=== PATIENT | female | born 1960 | race African-American/Black ===

== ENCOUNTER 2019-03-08 11:01 | Inpatient (IN) | payer OTHER ==
[2019-03-03 12:06] VITALS: BMI 35.5
[~2019-03-08 11:01] MED LIST: BUPIVACAINE HCL/PF 2.5 MG/ML - 30 ML VIAL IJ ONE
[2019-03-08] MEDS ORDERED: MIDAZOLAM HCL 2 MG/2 ML SINGLE DOSE VIAL ONE ×2 (11:29→11:58)
--- NOTE | 2019-03-08 11:54 | HP ---
Admitting History and Physical - Admission Chief Complaint: Morbid obesity History Source: Patient Limitations to Obtaining History: No Limitations - Past Medical History Cardiovascular: Yes: HTN ...: No Endocrine: Yes: Diabetes Mellitus - Past Surgical History Past Surgical History: Yes: Appendectomy, - Smoking History Smoking history: Never smoked Have you smoked in the past 12 months: No - Alcohol/Substance Use Hx Alcohol Use: No - Social History ADL: Independent Home Medications - Allergies Allergies/Adverse Reactions: Allergies Allergy/AdvReac Type Severity Reaction Status Date / Time No Known Allergies Allergy Verified 03/08/19 11:23 - Home Medications Home Medications: Ambulatory Orders Dapagliflozin Propanediol [Farxiga] 10 mg PO DAILY 05/24/15 Furosemide [Lasix -] 40 mg PO DAILY 05/24/15 Triamterene [Dyrenium -] 75 mg PO DAILY 05/24/15 Oxycodone HCl/Acetaminophen [Percocet 5/325 -] 1 tab PO Q6H #20 tablet 05/25/15 Dulaglutide [Trulicity] 1.5 mg SQ WEEKLY 03/03/19 Docusate Sodium [Colace -] 100 mg PO TID #90 capsule 03/08/19 Famotidine [Pepcid] 20 mg PO BID #60 tablet 03/08/19 Ondansetron [Zofran -] 8 mg PO TID #30 tablet 03/08/19 Oxycodone HCl/Acetaminophen [Percocet 5-325 mg Tablet] 1 - 2 tab PO Q6H #28 tab MDD 4 03/08/19 Family Medical History Family History: Unremarkable Review of Systems - Review of Systems Constitutional: denies: Chills, Fever Neck: reports: No Symptoms Cardiovascular: reports: No Symptoms Respiratory: reports: No Symptoms Gastrointestinal: reports: No Symptoms Neurological: denies: Change in LOC Pain Intensity: 0 Physical Examination Vital Signs: Vital Signs Temperature 98.5 F 03/08/19 11:25 Pulse Rate 72 03/08/19 11:25 Respiratory Rate 16 03/08/19 11:25 Blood Pressure 138/87 03/08/19 11:25 O2 Sat by Pulse Oximetry (%) 99 03/08/19 11:32 Constitutional: Yes: Calm Neck: Yes: WNL Cardiovascular: Yes: WNL Respiratory: Yes: Regular Gastrointestinal: Yes: Soft, Abdomen, Obese. No: Tenderness Neurological: Yes: Alert, Oriented Problem List - Problems (1) Hypertension Code(s): I10 - ESSENTIAL (PRIMARY) HYPERTENSION Qualifiers: Hypertension type: unspecified Qualified Code(s): I10 - Essential (primary ) hypertension (2) Diabetes mellitus type 2 in obese Code(s): E11.69 - TYPE 2 DIABETES MELLITUS WITH OTHER SPECIFIED COMPLICATION; E66.9 - OBESITY, UNSPECIFIED (3) BMI 35.0-35.9,adult Code(s): Z68.35 - BODY MASS INDEX (BMI) 35.0-35.9, ADULT (4) Morbid obesity due to excess calories Code(s): E66.01 - MORBID (SEVERE) OBESITY DUE TO EXCESS CALORIES Assessment/Plan Laparoscopic possible open vertical sleeve gastrectomy possible liver biopsy, upper endoscopy
[2019-03-08] MEDS ORDERED: HYDROmorphone HCL/PF 1 MG/ML AMP ONE (12:53)
[2019-03-08] MEDS ORDERED: LABETALOL HCL 5 MG/1 ML (100MG/20 ML VIAL) ONE (12:57)
[2019-03-08] MEDS ORDERED: BUPIVACAINE HCL 0.25% 125 MG/50 ML VIAL ONE (12:57)
[2019-03-08] MEDS ORDERED: DESFLURANE GAS 240 ML BOTTLE IH ONE (13:02)
[2019-03-08] MEDS ORDERED: NEOSTIGMINE METHYLSULFATE 0.5 MG/ML - 10 ML MDV ONE (13:12)
[2019-03-08] MEDS ORDERED: ceFAZolin SODIUM 1 GM VIAL ONE (13:12)
[2019-03-08] MEDS ORDERED: GLYCOPYRROLATE 0.2 MG/1 ML VIAL ONE (13:12)
[2019-03-08] MEDS ORDERED: BUPIVACAINE HCL/PF 2.5 MG/ML - 30 ML VIAL IJ ONE (13:54)
[2019-03-08] MEDS ORDERED: HYDROmorphone HCL CARPU-JECT 2 MG/1 ML DISP.SYRIN IVPB PRN (14:06)
--- NOTE | 2019-03-08 14:10 | OP ---
Operative Note - Note: Operative Date: 03/08/19 Pre-Operative Diagnosis: Morbid obesity. BMi 35.5. Hypertension. Diabetes mellitus type 2 Operation: Diagnositc laparoscopy. Laparoscopic vertical sleeve gastrectomy. Laparoscopic oversewing of bleeding gastric staple line Post-Operative Diagnosis: Same as Pre-op Surgeon: Valeriy Dick Social Media Marketer: Abdirizak Sanders Anesthesia: General Specimens Removed: Greater curvature of stomach Estimated Blood Loss (mls): 30 Drains & Tubes with Location: 36 fr Bougie Operative Report Dictated: Yes
[2019-03-08] MEDS ORDERED: SODIUM CHLORIDE 1,000 ML IV SCH (14:15)
[2019-03-08] MEDS ORDERED: FAMOTIDINE 20 MG PREMIXED IVPB IVPB ONE (14:16)
[2019-03-08] MEDS ORDERED: ONDANSETRON 4 MG/2 ML VIAL IVPUSH PRN (14:19)
[2019-03-08] MEDS ORDERED: oxyCODONE HCL 5 MG TABLET PO PRN ×2 (14:19)
[2019-03-08] MEDS ORDERED: PROMETHAZINE HCL 25 MG/1 ML VIAL IVPUSH PRN (14:19)
[2019-03-08] MEDS: METOCLOPRAMIDE HCL INJECTION 10 MG/2 ML VIAL IVPUSH SCH ×3 (14:28→20:09)
[2019-03-08] MEDS: ACETAMINOPHEN 1000 MG/100 ML VIAL (NON FORMULARY) IVPB SCH ×3 (14:30→20:09)
[2019-03-08] MEDS: LABETALOL HCL 5 MG/1 ML (100MG/20 ML VIAL) IVPUSH ONE ×2 (14:30→19:03)
[2019-03-08] MEDS: hydrALAZINE HCL 20 MG/ML VIAL IVPUSH ONE ×2 (14:36→19:03)
[2019-03-08 14:38] LABS: HEMATOCRIT 40.4 % (32.4-45.2); HEMOGLOBIN 13.4 GM/dl (10.7-15.3); MCH 30.7 pg (25.7-33.7); MCHC 33.1 g/dl (32.0-36.0); MEAN CELL VOLUME 92.6 fl (80-96); MEAN PLT VOLUME 8.9 fl (7.5-11.1); PLATELET COUNT 253 K/MM3 (134-434); RBC 4.36 M/mm3 (3.60-5.2); RDW 14.6 % (11.6-15.6); WHITE BLOOD COUNT 11.3 K/mm3 (4.0-10.8)
[2019-03-08 14:46] LABS: ALBUMIN 3.1 g/dl (3.4-5.0); BILIRUBIN,TOTAL 0.5 mg/dl (0.2-1); CALCIUM 8.7 mg/dl (8.5-10); CREATININE 1.1 mg/dl (0.55-1.3); POTASSIUM 3.8 mmol/L (3.5-5.1)
[2019-03-08] MEDS ORDERED: LABETALOL HCL 5 MG/1 ML (100MG/20 ML VIAL) IVPUSH PRN (15:53)
--- NOTE | 2019-03-08 16:44 | SPEC ---
DATE OF OPERATION: 03/08/2019 PLACE OF SURGERY: [address] [address] SURGEON: Carlee Dick MD SODIUM CHLORITE OPERATOR: Abdirizak Sanders MD PREOPERATIVE DIAGNOSES: 1. Morbid obesity. 2. Body mass index 35.5. 3. Hypertension. 4. Diabetes mellitus type 2. POSTOPERATIVE DIAGNOSES: 1. Morbid obesity. 2. Body mass index 35.5. 3. Hypertension. 4. Diabetes mellitus type 2. PROCEDURES: 1. Diagnostic laparoscopy. 2. Laparoscopic vertical sleeve gastrectomy. 3. Laparoscopic oversewing of gastric staple line for bleeding. SPECIMEN: Greater curvature of the stomach. ESTIMATED BLOOD LOSS: 30 mL. DRAINS: None. ANESTHESIA: GET. BOUGIE SIZE: 36-[place]ovenian. REASON FOR PROCEDURE: This is a 58-year-old female who presents for weight loss options. After describing different options, she decided to proceed with a laparoscopic, possible open, vertical sleeve gastrectomy, possible liver biopsy, upper endoscopy. The risks and benefits of the procedure were explained. These included bleeding, infection, hernia, GA, DVT, PE, injury to surrounding structures including the liver, colon, bowel, spleen, esophagus, vessel injury, nerve injury, weight regain, gastric leak, staple line leak, sleeve leak, obstruction, vitamin deficiency, hair loss, and as some of the possible complications. The patient understood and signed informed consent. DESCRIPTION OF PROCEDURE: The patient was placed supine on the operating room table. The patient underwent general endotracheal intubation. The arms were brought out at 90 degrees and secured. A foot board was placed, and the legs were secured laterally with padding. The abdomen was prepped and draped in the usual sterile fashion. A timeout was performed. An incision was made in the left upper quadrant, and a Veress needle inserted. Pneumoperitoneum was established. Subsequently, the Veress needle was removed, and a 5-mm trocar was placed under direct visualization with the laparoscope. The laparoscopic camera was inserted, and inspection of the abdominal cavity was performed. An incision was made in the supraumbilical region, and a 15-mm trocar placed under direct visualization. A 5-mm trocar was then placed in the right upper quadrant, and a 5-mm trocar placed below the left subcostal margin. A stab wound was made in the subxiphoid area, and a Olinda clamp inserted and removed to dilate the tract. A Iris liver retractor was inserted. The post was secured at the bedside by the nursing staff. The patient was placed in steep reverse Trendelenburg position. The Iris liver retractor was used to secure the liver towards the anterior abdominal wall. The pylorus was identified and 6 cm proximal to it, the lesser sac was entered using the Ligasure device. All lateral attachments to the greater curvature of the stomach including the short gastric vessels were ligated using the Ligasure device toward the gastrosplenic and gastrophrenic ligaments. Once this was done in its entirety, it was confirmed that all tubes within the nasal or oropharyngeal cavity including a temperature probe were removed by Anesthesia. The bougie was then inserted by Anesthesia. Transection of the stomach was then begun staying adjacent to the bougie but away from the angularis. Transection of the stomach was performed near the portion of the stomach where the lesser sac was entered. Two laparoscopic Endo-LISSETTE black loads were used at this location. Laparoscopic Endo-LISSETTE purple loads were then used for the remainder of the transection until the greater curvature of the stomach was fully transected. This was done staying close to the bougie. Care was taken to stay away from the angle of His cephalad. The staple line was then inspected. Hemostasis was identified. A leak test was then performed. The stomach was clamped distally to the staple line. Irrigation solution was placed in the left upper quadrant, and air insufflated by Anesthesia into the sleeve. No leaks were identified, and no obstruction was identified. This was done throughout the entirety of the staple line. The stomach was suctioned and the bougie removed fully intact under direct visualization. At this point, the irrigation solution was suctioned, and again hemostasis noted. The 15-mm supraumbilical trocar was then removed, and the specimen removed from the site using a sponge stick beavers. A Kulwant Lilia device was then used to close the fascia with a 0 Vicryl suture at this site. Again, hemostasis was noted. The Iris liver retractor was then removed under direct visualization. Pneumoperitoneum was desufflated. Hemostasis was noted at all incision sites, and Marcaine was injected at all incision sites. A 3-0 Vicryl suture was used to close the deep subcutaneous tissue at the 15-mm incision site. All incision sites were closed using 4-0 Biosyn. In addition, because of bleeding at the staple line, laparoscopic oversewing using Endo Stitch device was performed. This was done throughout the entirety of the staple line. After the staple line was sutured, hemostasis was noted. She tolerated the procedure and was transferred to recovery room in stable condition. CARLEE DICK M.D. [id number]
[2019-03-08] MEDS: ONDANSETRON 4 MG/2 ML VIAL IVPUSH SCH ×3 (19:03→22:23)
[2019-03-08] MEDS: ENOXAPARIN NA (PORCINE) 40 MG/0.4 ML DISP.SYRIN SQ SCH (22:23)
[2019-03-08] MEDS: FAMOTIDINE 20 MG/50 ML IVPB 20 MG/50 ML MG IVPB SCH (22:24)
[2019-03-09] MEDS: ONDANSETRON 4 MG/2 ML VIAL IVPUSH SCH ×3 (02:15→10:47)
[2019-03-09] MEDS: ACETAMINOPHEN 1000 MG/100 ML VIAL (NON FORMULARY) IVPB SCH ×3 (02:15→10:47)
[2019-03-09] MEDS: METOCLOPRAMIDE HCL INJECTION 10 MG/2 ML VIAL IVPUSH SCH ×2 (02:15→10:48)
--- NOTE | 2019-03-09 07:20 | DS ---
Physical Exam: SUBJECTIVE: Patient seen and examined. POD #1 s/p Laparoscopic vertical sleeve gastrectomy. Laparoscopic wedge liver biopsy. Laparoscopic oversewing of gastric staple line. Doing well. Pain adequately controlled. States she has been OOB and ambulating unassisted. Voiding spontaneously. Using her incentive spirometer as directed. Denies n/v/f/c, CP, palpitations, SOB or MCCARTHY. OBJECTIVE: Vital Signs Temperature 98.4 F 03/09/19 06:00 Pulse Rate 88 03/09/19 06:00 Respiratory Rate 03/09/19 06:00 Blood Pressure 148/76 03/09/19 06:00 O2 Sat by Pulse Oximetry (%) 94 L 03/09/19 06:53 PHYSICAL EXAM GENERAL: The patient is awake, alert, and fully oriented, in no acute distress. HEAD: Normal with no signs of trauma. EYES: PERRL, extraocular movements intact, sclera anicteric, conjunctiva clear. ENT: Ears normal, nares patent, oropharynx clear without exudates, moist mucous membranes. NECK: Trachea midline, full range of motion, supple. LUNGS: Breath sounds equal, clear to auscultation bilaterally, no wheezes, no crackles, no accessory muscle use. HEART: Regular rate and rhythm, S1, S2 without murmur, rub or gallop. ABDOMEN: All surgical ports c/d/i EXTREMITIES: 2+ pulses, warm, well-perfused, no edema. NEUROLOGICAL: Cranial nerves II through XII grossly intact. Normal speech, gait not observed. PSYCH: Normal mood, normal affect. SKIN: Warm, dry, normal turgor, no rashes or lesions noted. LABS CBC,CMP WBC 11.3 K/mm3 (4.0-10.8) H 03/08/19 14:15 RBC 4.36 M/mm3 (3.60-5.2) 03/08/19 14:15 Hgb 13.4 GM/dl (10.7-15.3) 03/08/19 14:15 Hct 40.4 % (32.4-45.2) 03/08/19 14:15 MCV 92.6 fl (80-96) 03/08/19 14:15 MCH 30.7 pg (25.7-33.7) 03/08/19 14:15 MCHC 33.1 g/dl (32.0-36.0) 03/08/19 14:15 RDW 14.6 % (11.6-15.6) 03/08/19 14:15 Plt Count 253 K/MM3 (134-434) 03/08/19 14:15 MPV 8.9 fl (7.5-11.1) 03/08/19 14:15 Sodium 138 mmol/L (136-145) 03/08/19 14:15 Potassium 3.8 mmol/L (3.5-5.1) 03/08/19 14:15 Chloride 104 mmol/L (98-107) 03/08/19 14:15 Carbon Dioxide 29 mmol/L (21-32) 03/08/19 14:15 Anion Gap 5 MMOL/L (8-16) L 03/08/19 14:15 BUN 21.0 mg/dl (7-18) H 03/08/19 14:15 Creatinine 1.1 mg/dl (0.55-1.3) 03/08/19 14:15 Est GFR (CKD-EPI)AfAm 63.64 03/08/19 14:15 Est GFR (CKD-EPI)NonAf 54.91 03/08/19 14:15 POC Glucometer 138 UNITS (80-120) 03/08/19 11:30 Random Glucose 195 mg/dl (74-106) H 03/08/19 14:15 Calcium 8.7 mg/dl (8.5-10) 03/08/19 14:15 Total Bilirubin 0.5 mg/dl (0.2-1) 03/08/19 14:15 AST 156 U/L (15-37) H 03/08/19 14:15 ALT 173 U/L (13-61) H 03/08/19 14:15 Alkaline Phosphatase 90 U/L (45-117) 03/08/19 14:15 Total Protein 7.0 g/dl (6.4-8.2) 03/08/19 14:15 Albumin 3.1 g/dl (3.4-5.0) L 03/08/19 14:15 HOSPITAL COURSE: Date of Admission:03/08/19 Date of Discharge: 03/09/19 The patient was admitted to the Med-Surg Unit after elective bariatric surgery. Now, s/p laparoscopic vertical sleeve gastrectomy. The day of surgery, the patient ambulated the hallways with assistance. The patient was monitored with remote tele/continuous pulse ox. Narcotic and non-narcotic pain management control was achieved with oral and IV pain control. Upper GI series was obtained POD #1 and no leak, extravastion or outlet obstruction. Started on a Bariatric Stage 1 diet and tolerated well. Samantha-operative IV ABX were administered in addition to GI prophylaxis. DVT prophylaxis was achieved with SCDs and early ambulation. The discharge instructions and an oral pain management plan were reviewed with the patient. All questions answered. Above plan discussed with Dr. Dick and agreed. Minutes to complete discharge: 35 Visit type - Case Type Case Type: Scheduled - New patient This patient is new to me today: Yes Date on this admission: 03/09/19
[2019-03-09 07:50] LABS: HEMATOCRIT 39.3 % (32.4-45.2); HEMOGLOBIN 12.6 GM/dl (10.7-15.3); MCH 30.2 pg (25.7-33.7); MEAN CELL VOLUME 94.3 fl (80-96); MEAN PLT VOLUME 9.2 fl (7.5-11.1); PLATELET COUNT 233 K/MM3 (134-434); RBC 4.17 M/mm3 (3.60-5.2); RDW 14.7 % (11.6-15.6); WHITE BLOOD COUNT 11.9 K/mm3 (4.0-10.8)
[2019-03-09 07:56] LABS: ALBUMIN 2.9 g/dl (3.4-5.0); BILIRUBIN,TOTAL 0.6 mg/dl (0.2-1); CALCIUM 8.3 mg/dl (8.5-10); CREATININE 1.1 mg/dl (0.55-1.3); POTASSIUM 3.8 mmol/L (3.5-5.1); TOT PROT 6.5 g/dl (6.4-8.2)
[2019-03-09] MEDS ORDERED: HYDROmorphone HCL CARPU-JECT 1 MG/1 ML DISP.SYRIN IVPB PRN (08:56)
[2019-03-09] MEDS: ENOXAPARIN NA (PORCINE) 40 MG/0.4 ML DISP.SYRIN SQ SCH (10:48)
[2019-03-09] MEDS: FAMOTIDINE 20 MG/50 ML IVPB 20 MG/50 ML MG IVPB SCH (10:48)
--- NOTE | 2019-03-09 11:29 | PN ---
Progress Note (short form) - Note Progress Note: 58F POD1 s/p lap sleeve gastrectomy under GA-ETT. Pt states that pain is well controlled and reports no anesthetic complications. AVSS. Continue current regimen.
--- NOTE | 2019-03-09 13:00 | PN ---
Progress Note (short form) - Note Progress Note: POD 1 Pain/nausea controlled Vital Signs Period Temp Pulse Resp BP Sys/Car Pulse Ox Last 24 Hr 97.8 F-99.4 F 72-92 12-19 125-185/57-99 94-99 Abd soft CBC,CMP WBC 11.9 K/mm3 (4.0-10.8) H 03/09/19 07:00 RBC 4.17 M/mm3 (3.60-5.2) 03/09/19 07:00 Hgb 12.6 GM/dl (10.7-15.3) 03/09/19 07:00 Hct 39.3 % (32.4-45.2) 03/09/19 07:00 MCV 94.3 fl (80-96) 03/09/19 07:00 MCH 30.2 pg (25.7-33.7) 03/09/19 07:00 MCHC 32.0 g/dl (32.0-36.0) 03/09/19 07:00 RDW 14.7 % (11.6-15.6) 03/09/19 07:00 Plt Count 233 K/MM3 (134-434) 03/09/19 07:00 MPV 9.2 fl (7.5-11.1) 03/09/19 07:00 Sodium 137 mmol/L (136-145) 03/09/19 07:00 Potassium 3.8 mmol/L (3.5-5.1) 03/09/19 07:00 Chloride 104 mmol/L (98-107) 03/09/19 07:00 Carbon Dioxide 27 mmol/L (21-32) 03/09/19 07:00 Anion Gap 6 MMOL/L (8-16) L 03/09/19 07:00 BUN 18.0 mg/dl (7-18) 03/09/19 07:00 Creatinine 1.1 mg/dl (0.55-1.3) 03/09/19 07:00 Est GFR (CKD-EPI)AfAm 63.64 03/09/19 07:00 Est GFR (CKD-EPI)NonAf 54.91 03/09/19 07:00 POC Glucometer 185 UNITS (80-120) 03/08/19 14:34 Random Glucose 161 mg/dl (74-106) H 03/09/19 07:00 Calcium 8.3 mg/dl (8.5-10) L 03/09/19 07:00 Total Bilirubin 0.6 mg/dl (0.2-1) 03/09/19 07:00 AST 75 U/L (15-37) H 03/09/19 07:00 ALT 112 U/L (13-61) H 03/09/19 07:00 Alkaline Phosphatase 79 U/L (45-117) D 03/09/19 07:00 Total Protein 6.5 g/dl (6.4-8.2) 03/09/19 07:00 Albumin 2.9 g/dl (3.4-5.0) L 03/09/19 07:00 UGI pending If no leak/obstruction, will start clears and discharge home Problem List - Problems (1) Hypertension Code(s): I10 - ESSENTIAL (PRIMARY) HYPERTENSION Qualifiers: Hypertension type: unspecified Qualified Code(s): I10 - Essential (primary ) hypertension (2) Diabetes mellitus type 2 in obese Code(s): E11.69 - TYPE 2 DIABETES MELLITUS WITH OTHER SPECIFIED COMPLICATION; E66.9 - OBESITY, UNSPECIFIED (3) BMI 35.0-35.9,adult Code(s): Z68.35 - BODY MASS INDEX (BMI) 35.0-35.9, ADULT (4) Morbid obesity due to excess calories Code(s): E66.01 - MORBID (SEVERE) OBESITY DUE TO EXCESS CALORIES
[2019-03-09 14:17] VITALS: BP 142/73; PULSE 78; TEMP 98.2
--- NOTE | 2019-03-11 12:28 | PATH ---
Surgical Pathology Report Patient Name: BOZENA WAGNER Med. Rec. #: [id number] /Age/Gender: 1960 (Age: 58) / F Account: [id number] Location: [facility] MED-SURG Taken: 03/08/2019 Received: 03/08/2019 Reported: 03/11/2019 Physicians: Valeriy Dick M.D. Specimen(s) Received GREATER CURVATURE STOMACH Clinical History Morbid obesity Final Diagnosis GREATER CURVATURE, STOMACH, LAPAROSCOPIC GASTRIC SLEEVE EXCISION: PORTION OF STOMACH SHOWING MODERATE CHRONIC GASTRITIS. IMMUNOSTAIN SHOWS NUMEROUS H PYLORI ORGANISMS. Electronically Signed Becky Prado M.D. Gross Description Received in formalin, labeled "greater curvature, stomach," is a 16.5 x 4.5 cm. portion of stomach with a stapled margin of resection. The serosa is garibay-rosa with minimal attached fat. The mucosa is garibay-pink with normal folds. No mucosal masses are identified. Protective Service Specialist sections are submitted in one cassette.
== END 2019-03-09 13:59 | disposition home or self-care (01) | DRG 621 ==
LOC: FM/S 11:01
PROVIDERS: ADMIT Surgery; ATTEND Surgery
PROC: 0DB64Z3 Excision of Stomach, Percutaneous Endoscopic Approach, Vertical (ICD-10-PCS; principal; 2019-03-08 12:46)
DX: E66.01 Morbid (severe) obesity due to excess calories (principal); Z68.35 Body mass index [BMI] 35.0-35.9, adult; I10 Essential (primary) hypertension; E11.9 Type 2 diabetes mellitus without complications
CPT/HCPCS: 36415; 74241-TC-FY; 80053; 82962; 85027; 88305-TC; 88342-TC; 94760; J0131; J7030

== ENCOUNTER 2019-05-23 15:50 | Emergency (ER) | payer OTHER ==
[2019-05-23 15:56] VITALS: BP 118/79; PULSE 79; TEMP 98.2; BMI 30.2
[2019-05-23] MEDS ORDERED: ACETAMINOPHEN 500 MG TABLET (FP) PO ONE (16:25)
[2019-05-23] MEDS ORDERED: ACETAMINOPHEN 500 MG TABLET (FP) ONE (16:29)
--- NOTE | 2019-05-23 17:22 | PDOC ---
History of Present Illness - General Chief Complaint: Injury Stated Complaint: FALL Time Seen by Provider: 05/23/19 16:07 History Source: Patient Exam Limitations: No Limitations - History of Present Illness Initial Comments: 05/23/19 17:22 HISTORY OF PRESENT ILLNESS: 58-year-old woman past medical history of hypertension status post recent gastric bypass surgery who presents to the emergency department for evaluation of left-sided chest pain status post trip and fall on 03/21. Patient reports she was trying to get out of a gown when her foot got caught causing her to fall forward striking her chest on the floor. Patient reports she was able to extend her left arm to provide mild protection prior to impact. Patient reports the pain got worse today after similar pain for the previous 2 days. She denies any shortness of breath, dizziness, nausea or vomiting. No recent travel or sick contacts. PAST MEDICAL HISTORY: See HPI SURGICAL HISTORY: See HPI ALLERGIES: No known drug allergies REVIEW OF SYSTEMS General/Constitutional: Denies fever or chills. Denies weakness, weight change. HEENT: Denies change in vision. Denies ear pain or discharge. Denies sore throat. Cardiovascular: Denies chest pain or shortness of breath. Respiratory: Denies cough, wheezing, or hemoptysis. Gastrointestinal: Denies nausea, vomiting, diarrhea or constipation. Denies rectal bleeding. Genitourinary: Denies dysuria, frequency, or change in urination. Musculoskeletal: See HPI Skin and breasts: Denies rash or easy bruising. Neurologic: Denies headache, vertigo, loss of consciousness, or loss of sensation. Psychiatric: Denies depression or anxiety. Endocrine: Denies increased thirst. Denies abnormal weight change. Hematologic/Lymphatic: Denies anemia, easy bleeding, or history of blood clots. Allergic/Immunologic: Denies hives or skin allergy. Denies latex allergy. PHYSICAL EXAM General Appearance: Well-appearing, appropriately dressed. No apparent distress , no intoxication. HEENT: EOMI, PERRLA, normal ENT inspection, normal voice, TMs normal, pharynx normal. No conjunctival pallor. No photophobia, scleral icterus. Neck: Supple. Trachea midline. No tenderness, rigidity, carotid bruit, stridor , lymphadenopathy, or thyromegaly. Respiratory/Chest: Lungs CTAB. No shortness of breath, respiratory distress, accessory muscle use. No crackles, rales, rhonchi, stridor, wheezing, dullness Chest tender over the left anterolateral ribs worse over ribs #8 and #9. No flail chest present. Cardiovascular: RRR. S1, S2. No JVD, murmur, bradycardia, tachycardia. Vascular Pulses: Dorsalis-Pedis (R): 2+, Dorsalis-Pedis (L): 2+ Musculoskeletal/Extremities: Normal inspection. FROM of all extremities, normal capillary refill. Pelvis Stable. No CVA tenderness. No tenderness to extremities, pedal edema, swelling, erythema or deformity. 05/23/19 18:05 Past History - Past Medical History Allergies/Adverse Reactions: Allergies Allergy/AdvReac Type Severity Reaction Status Date / Time No Known Allergies Allergy Verified 05/23/19 15:56 Home Medications: Ambulatory Orders Dapagliflozin Propanediol [Farxiga] 10 mg PO DAILY 05/24/15 Furosemide [Lasix -] 40 mg PO DAILY 05/24/15 Triamterene [Dyrenium -] 75 mg PO DAILY 05/24/15 Dulaglutide [Trulicity] 1.5 mg SQ WEEKLY 03/03/19 Anemia: Yes Asthma: No Cancer: No Cardiac Disorders: No CVA: No COPD: No CHF: No Dementia: No Diabetes: Yes (2012) GI Disorders: Yes (UMBILICAL HERNIA) Disorders: No HTN: Yes Hypercholesterolemia: No Liver Disease: No Seizures: No Thyroid Disease: No - Surgical History Abdominal Surgery: Yes (ABDOMINOPLASTY 2012) Appendectomy: Yes (1975) Cardiac Surgery: No Cholecystectomy: No Gastric Stapling: Yes (03/08/19) Lung Surgery: No Neurologic Surgery: No Orthopedic Surgery: No - Psycho Social/Smoking Cessation Hx Smoking History: Never smoked Have you smoked in the past 12 months: No Hx Alcohol Use: No Drug/Substance Use Hx: No Substance Use Type: None Hx Substance Use Treatment: No *Physical Exam - Vital Signs Last Vital Signs Temp Pulse Resp BP Pulse Ox 98.2 F 79 18 118/79 99 05/23/19 15:52 05/23/19 15:52 05/23/19 15:52 05/23/19 15:52 05/23/19 15:52 ED Treatment Course - RADIOLOGY Radiology Studies Ordered: Category Date Time Status CHEST PA & LAT [RAD] Stat Radiology 05/23/19 16:24 Taken RIBS-LEFT SIDE [RAD] Stat Radiology 05/23/19 16:24 Taken - Medications Given in the ED: ED Medications Discontinued Medications Generic Name Dose Route Start Last Admin Trade Name August PRN Reason Stop Dose Admin Acetaminophen 1,000 mg 05/23/19 16:25 05/23/19 16:30 Tylenol - PO 05/23/19 16:26 1,000 mg ONCE ONE Administration Medical Decision Making - Medical Decision Making 05/23/19 17:20 A/P: 58-year-old woman with left-sided chest pain status post fall Tender to palpation over the left ribs Lungs clear to auscultation bilaterally Left rib series as read by me: Acute fractures of ribs 7 8 and 9 with 9th rib showing minimal displacement. Chest x-ray as read by me: Curly B-lines present in the right lung. Cardiac silhouette is within normal limits. Tylenol 1 g orally now Discharge home with incentive spirometer follow-up with her primary doctor. Discharge - Discharge Information Problems reviewed: Yes Clinical Impression/Diagnosis: Multiple rib fractures Qualifiers: Encounter type: initial encounter Fracture type: closed Laterality: left Qualified Code(s): S22.42XA - Multiple fractures of ribs, left side, initial encounter for closed fracture Condition: Fair Disposition: HOME - Admission No - Follow up/Referral Referrals: ON STAFF,NOT [Primary Care Provider] - - Patient Discharge Instructions Additional Instructions: Use incentive spirometer 10 times an hour until you follow-up with your primary doctor. You have 3 rib fractures on your left side on ribs 7, 8 and 9. It is important that you perform coughing and deep breathing exercises. Take Tylenol or Motrin as needed for pain. Follow histology teacher's instructions for appropriate dosage. Return to the emergency department for shortness of breath, fevers, chills, coughing or for any other concerns. Thank you very much for choosing us to provide your emergent health care needs. - Post Discharge Activity
== END 2019-05-23 17:31 | disposition home or self-care (01) ==
LOC: JERFT 15:50
DX: S22.42XA Multiple fractures of ribs, left side, initial encounter for closed fracture (principal); W18.39XA Other fall on same level, initial encounter; Y93.89 Activity, other specified; Y92.89 Other specified places as the place of occurrence of the external cause; Z98.84 Bariatric surgery status; E11.9 Type 2 diabetes mellitus without complications; I10 Essential (primary) hypertension
CPT/HCPCS: 71046-TC-FY; 71101-TC-LT-FY; 99281-25